=== PATIENT | male | born 1965 | race Two or more races ===

== ENCOUNTER 2025-03-08 09:46 | Emergency (ER) | payer OTHER ==
[~2025-03-08] VITALS: Ht 170.2 cm; Wt 74.8 kg
[2025-03-08] MEDS ORDERED: METFORMIN HCL1000 M2 (10:13)
[2025-03-08 12:31] LABS: BASO % 0.6 % (0.1-1.2); EOS # 0.10 (0.04-0.54); EOS % 1.4 % (0.7-7.0); LYMPH # 1.74 (1.18-3.74); LYMPH % 24.8 % (19.3-53.1); MEAN PLATELET VOLUME 9.70 fl (9.4-12.4); MONO # 0.40 (0.24-0.82); MONO % 5.7 % (4.7-12.5); NEUT # 4.73 (1.56-6.13); NEUT % 67.2 % (34.0-71.1); RED CELL DISTRIBUTION WIDTH 13.2 % (11.6-14.4)
[2025-03-08 13:03] LABS: ALT/SGPT 24.0 U/L (12-78); AST/SGOT 22.0 U/L (15-37); BILIRUBIN TOTAL 0.53 mg/dL (0.3-1.2); BUN CREA RATIO 12.0 (7.0-25.0); CREATININE SERUM 0.82 mg/dL (0.70-1.30); GFR 95.2; GLOBULINA 2.3 G/DL (2.4-3.5); GLUCOSE FASTING 139.0 mg/dL (65-100); OSMOLALITY SERUM 284.0 MOSM/KG (275-295)
[2025-03-08] MEDS ORDERED: KETOROLAC TROMETHAMINE 30 MG VIAL IM STA (14:08)
[2025-03-08] MEDS ORDERED: KETOROLAC TROMETHAMINE 30 MG VIAL ONE (14:30)
== END 2025-03-08 14:40 | disposition home or self-care (01) ==
LOC: ER 09:46
PROVIDERS: General Practice
DX: R55 Syncope and collapse (principal); M25.562 Pain in left knee; E11.9 Type 2 diabetes mellitus without complications; Z79.84 Long term (current) use of oral hypoglycemic drugs